=== PATIENT | female | born 2005 | race Two or more races ===

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

== ENCOUNTER 2025-02-19 10:01 | Emergency (ER) | payer OTHER ==
[~2025-02-19] VITALS: Ht 152.4 cm; Wt 60.3 kg
[2025-02-19 11:26] VITALS: BP 132/84; O2SAT 99
[2025-02-19] MEDS ORDERED: PROPRANOLOL HCL10 MG PO (11:33)
[2025-02-19] MEDS ORDERED: SYNTHROID50 MCG PO (11:34)
[2025-02-19] MEDS ORDERED: LEVOTHYROXINE50 MCG PO (11:34)
[2025-02-19] MEDS ORDERED: FAMOTIDINE/PF 20 MG/2 ML VIAL IV ONE (12:00)
[2025-02-19] MEDS ORDERED: 0.9 % SODIUM CHLORIDE 1,000 ML IV SCH (12:00)
[2025-02-19] MEDS ORDERED: ONDANSETRON HCL 2 MG/ML VIAL IV ONE (12:00)
[2025-02-19 12:23] LABS: BASO % 0.8 % (0.1-1.2); EOS # 0.17 (0.04-0.54); EOS % 3.4 % (0.7-7.0); LYMPH # 1.48 (1.18-3.74); LYMPH % 29.9 % (19.3-53.1); MEAN PLATELET VOLUME 11.50 fl (9.4-12.4); MONO # 0.50 (0.24-0.82); MONO % 10.1 % (4.7-12.5); NEUT # 2.74 (1.56-6.13); NEUT % 55.4 % (34.0-71.1); RED CELL DISTRIBUTION WIDTH 14.1 % (11.6-14.4)
[2025-02-19 12:55] LABS: URINE APPEARANCE Clear; URINE BILIRRUBIN Negative (NEGATIVE); URINE BLOOD Negative; URINE COLOR Dark Yellow; URINE GLUCOSE Negative (NEGATIVE); URINE KETONE Trace (NEGATIVE); URINE LEUKOCYTE Trace; URINE NITRATE Negative; URINE PROTEIN Negative (NEGATIVE); URINE UROBILINOGEN 1.0 E.U./dl
[2025-02-19 13:00] LABS: URINE EPITHELIAL CELLS 38.3 uL (0.0-38.8); URINE RBC 2.4 uL (0.0-20.8); URINE WBC 22.5 uL (0.0-23.2)
[2025-02-19 13:21] LABS: ALT/SGPT 51 U/L (12-78); AST/SGOT 32 U/L (15-37); BILIRUBIN TOTAL 0.56 mg/dL (0.3-1.2); BUN CREA RATIO 13 (7.0-25.0); CREATININE SERUM 0.54 mg/dL (0.55-1.02); GFR 145.44; GLOBULINA 5.2 G/DL (2.4-3.5); GLUCOSE FASTING 93 mg/dL (65-100); OSMOLALITY SERUM 277 MOSM/KG (275-295)
[2025-02-19 13:38] LABS: URINE CAST 0.42 uL (0.0-1.40)
[2025-02-19 13:38] LABS: HCG QUANTITATIVE < 1 mUI/mL (1-3)
[2025-02-19] MEDS ORDERED: CIPRO500 MG PO (13:54)
== END 2025-02-19 14:03 | disposition home or self-care (01) ==
LOC: ER 10:01 → EMR PED 10:14
PROVIDERS: Student in an Organized Health Care Education/Training Program
DX: N39.0 Urinary tract infection, site not specified (principal); I10 Essential (primary) hypertension; E03.9 Hypothyroidism, unspecified; Z88.8 Allergy status to other drugs, medicaments and biological substances